=== PATIENT | female | born 1970 | race Caucasian/White ===

== ENCOUNTER 2018-11-08 06:09 | Emergency (ER) | payer OTHER ==
[2018-11-08] MEDS ORDERED: Adacel (T-DAP) 0.5 ML SYRINGE ONE (06:45)
[2018-11-08] MEDS ORDERED: HYDROcodone/Acetaminophen 10/325 mg Tablet ONE (06:45)
[2018-11-08] MEDS ORDERED: Lidocaine 2% Jelly 5 ML TUBE ONE (07:15)
[2018-11-08] MEDS ORDERED: Bacitracin Zinc 1 Packet ONE (07:44)
--- NOTE | 2018-11-08 07:45 | CT ---
PRELIMINARY REPORT/[facility]/EMERGENTY AFTER-HOURS PROCEDURE CT Head Without Contrast EXAM DATE/TIME: 11/08/2018 6:32 AM CLINICAL HISTORY: 48 years old, female; Injury or trauma; Fall; Initial encounter; Concussion / head injury; Consciousn ess not specified; Patient HX: Fell TECHNIQUE: Axial computed tomography images of the head/brain without contrast. All CT scans at this facility use at least one of these dose optimization techniques: automated expos ure control; mA and/or kV adjustment per patient size (includes targeted exams where dose is matched to clinical indication); or iterative reconstruction. COMPARISON: No relevant prior studies available. FINDINGS: Brain: Normal. No hemorrhage. No significant white matter disease. No edema. Ventricles: Normal. No ventriculomegaly. Bones/joints: Unremarkable. No acute fracture. Sinuses: Visualized sinuses are unremarkable. No acute sinusitis. Mastoid air cells: Visualized mastoid air cells are unremarkable. No mastoid effusion. Soft tissues: There is marked nasal soft tissue swelling. IMPRESSION: 1. No acute intracranial hemorrhage. 2. There is marked nasal soft tissue swelling. Thank you for allowing us to participate in the care of your patient. Dictated and Authenticated by: Mainor Amaya MD 11/08/2018 7:17 AM Central Time ([place] & [place]) CT OF THE BRAIN WITHOUT CONTRAST: INDICATION: Head injury. COMPARISON: None. FINDINGS: The septum pellucidum and third ventricle are midline. No acute infarct, hemorrhage, or hydrocephalu s is present. The skull and extracranial soft tissues are unremarkable-appearing. Visualized parana emelyn sinuses and mastoid air cells are clear. The skull is intact. IMPRESSION: No acute intracranial abnormality. POS: RU
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
--- NOTE | 2018-11-08 08:12 | CT ---
PRELIMINARY REPORT/[facility]/EMERGENTY AFTER-HOURS PROCEDURE CT Maxillofacial Without Contrast EXAM DATE/TIME: 11/08/2018 6:36 AM CLINICAL HISTORY: 48 years old, female; Injury or trauma; Fall; Initial encounter; Blunt trauma (contusions or hematoma s); Forehead and nose; Patient HX: Fell TECHNIQUE: Axial computed tomography images of the face without intravenous contrast. All CT scans at this facility use at least one of these dose optimization techniques: automated expos ure control; mA and/or kV adjustment per patient size (includes targeted exams where dose is matched to clinical indication); or iterative reconstruction. Coronal and sagittal reformatted images were cr eated and reviewed. COMPARISON: No relevant prior studies available. FINDINGS: Tubes, catheters and devices: There are cervical plate and screws, incompletely visualized. Orbits: No acute intraorbital abnormality. Globes are unremarkable. Sinuses: Normal. No air-fluid levels. Bones/joints: There is a nondisplaced RIGHT nasal bone fracture. There is LEFT nasal septal deviation , possibly chronic. Soft tissues: There is a 2.0 x 2.4 x 2.2 cm LEFT nasal soft tissue hematoma. IMPRESSION: 1. There is a 2.0 x 2.4 x 2.2 cm LEFT nasal soft tissue hematoma. 2. There is a nondisplaced RIGHT nasal bone fracture. Thank you for allowing us to participate in the care of your patient. Dictated and Authenticated by: Mainor Amaya MD 11/08/2018 7:21 AM Central Time ([place] & [place]) NONCONTRAST CT OF THE FACE: Date: 11/08/18 INDICATION: Facial injury. COMPARISON: None. FINDINGS: There is a prominent hematoma involving the left aspect of the nasal bridge, extending into the left nasal cartilage. There is a nondisplaced fracture involving the left nasal bone. There is a nondispla irvin fracture involving the right nasal bone. The osseous nasal septum is intact, slightly deviated to the left. There is a leftward projecting septal spur. Paranasal sinuses are clear. Visualized mastoi d air cells are clear. Mandible is intact. The orbital rims, orbital ruelas, floor, and roof appear in tact. Zygomatic arches are intact. The pterygoid plates are intact. Visualized cervical spine demonst rates partial visualization of the ACDF. Craniocervical junction appears within normal limits. Visual ized orbits are intact. Visualized intracranial contents appear within normal limits. IMPRESSION: 1. Bilateral nondisplaced nasal bone fractures. 2. Prominent left nasal soft tissue contusion with some contusion involving the left nasal cartilage . POS: BH
== END 2018-11-08 07:55 | disposition home or self-care (01) ==
LOC: BURERS 06:09
DX: S02.2XXA Fracture of nasal bones, initial encounter for closed fracture (principal); S01.21XA Laceration without foreign body of nose, initial encounter; S01.511A Laceration without foreign body of lip, initial encounter; M54.2 Cervicalgia; F32.9 Major depressive disorder, single episode, unspecified; F17.210 Nicotine dependence, cigarettes, uncomplicated; Z79.899 Other long term (current) drug therapy; W18.30XA Fall on same level, unspecified, initial encounter
CPT/HCPCS: 70450; 70486; 72125; 90471; 90715

== ENCOUNTER 2018-11-09 05:54 | Emergency (ER) | payer OTHER | END 2018-11-09 06:30 | disposition home or self-care (01) | LOC: BURERS 05:54 | DX: S02.2XXA Fracture of nasal bones, initial encounter for closed fracture (principal); F32.9 Major depressive disorder, single episode, unspecified; F17.210 Nicotine dependence, cigarettes, uncomplicated; Z79.899 Other long term (current) drug therapy; W17.89XA Other fall from one level to another, initial encounter | CPT/HCPCS: 99283 ==

== ENCOUNTER 2018-11-19 16:43 | Outpatient (CLI) | payer OTHER ==
--- NOTE | 2018-11-19 21:47 | RAD ---
LEFT RIBS 11/19/18 Multiple views show no evident fracture at this time. The adjacent lung is clear. There is no pneumot horax or pleural effusion. IMPRESSION: No acute finding. POS: HOME
== END 2018-11-19 16:44 | disposition home or self-care (01) ==
LOC: BURRAD 16:43
PROVIDERS: ATTEND Family Medicine
DX: J43.8 Other emphysema (principal)
CPT/HCPCS: 36415; 82103

== ENCOUNTER 2019-03-18 16:36 | Outpatient (CLI) | payer OTHER ==
--- NOTE | 2019-03-18 17:55 | RAD ---
LEFT FOOT THREE VIEWS: 03/18/19 No major fracture was seen, however, on the AP view there was a small area of thickening and potentia l cortical line in the mid third metatarsal shaft. The possibility of a stress injury is raised here. The finding should be correlated with the exact site of pain. The remainder of the foot showed no ac gavin change. A very small calcaneal spur was forming. IMPRESSION: Equivocal cortical thickening and possibly a small cortical line in the mid third metatarsal shaft. If the clinical exam is appropriate, a stress fracture might be possible. Code T POS: HOME
== END 2019-03-18 16:37 | disposition home or self-care (01) ==
LOC: BURRAD 16:36
PROVIDERS: ATTEND Nurse Practitioner Family
DX: M79.672 Pain in left foot (principal); M89.8X6 Other specified disorders of bone, lower leg

== ENCOUNTER 2019-03-26 07:55 | Emergency (ER) | payer OTHER ==
[2019-03-26] MEDS ORDERED: HYDROcodone/Acetaminophen 10/325 mg Tablet ONE (08:16)
== END 2019-03-26 08:21 | disposition home or self-care (01) ==
LOC: BURERS 07:55
DX: G89.18 Other acute postprocedural pain (principal); F32.9 Major depressive disorder, single episode, unspecified; F17.210 Nicotine dependence, cigarettes, uncomplicated
CPT/HCPCS: 99283

== ENCOUNTER 2023-12-04 09:58 | Emergency (ER) | payer OTHER | END 2023-12-04 10:39 | disposition home or self-care (01) | LOC: BURERS 09:58 | DX: S63.502A Unspecified sprain of left wrist, initial encounter (principal); F17.210 Nicotine dependence, cigarettes, uncomplicated; X58.XXXA Exposure to other specified factors, initial encounter ==